=== PATIENT | female | born 1960 ===

== ENCOUNTER → 2016-06-26 | Outpatient (CLI) | payer BC ==
--- NOTE | 2016-06-26 10:00 | DIAGNOSTIC IMAGING REPORT ---
RIGHT SHOULDER MIN 2 VIEWS CLINICAL HISTORY: RIGHT SHOULDER PAIN Right pain COMPARISON: None. DISCUSSION: Minimal degenerative change glenohumeral joint. All remaining osseous structures are unremarkable. Alignment is anatomic. There is no evidence for soft tissue swelling. IMPRESSION: Minimal degenerative change articular surfaces of the glenohumeral joint. Electronically signed by: Bib Lee M.D. 06/26/2016 9:59 AM Dictated Date/Time: 06/26/2016 9:58 AM
== END | disposition home or self-care (01) ==
LOC: C.RDSM 08:17
PROVIDERS: ATTEND Family Medicine
DX: M25.511 Pain in right shoulder (principal)

== ENCOUNTER → 2016-07-17 | Outpatient (CLI) | payer BC | END | disposition home or self-care (01) | LOC: C.PAPS 10:38 | PROVIDERS: ATTEND Obstetrics & Gynecology | DX: Z01.419 Encounter for gynecological examination (general) (routine) without abnormal findings (principal); Z87.42 Personal history of other diseases of the female genital tract ==

== ENCOUNTER 2017-02-15 09:36 | Emergency (ER) | payer BC ==
[~2017-02-15] VITALS: Ht 162.6 cm; Wt 56.3 kg
[2017-02-15 09:41] VITALS: TEMP 36.8; Ht 162.6 cm; Wt 56.3 kg
[2017-02-15] MEDS ORDERED: LANS30CA12 PO (09:48)
[2017-02-15] MEDS ORDERED: ESTR0.3T PO (09:48)
[2017-02-15] MEDS ORDERED: MULTTAB58 PO (09:48)
--- NOTE | 2017-02-15 10:17 | EMERGENCY ROOM VISIT NOTE ---
ED Visit Note First contact with patient: 09:51 CHIEF COMPLAINT: Facial laceration HISTORY OF PRESENT ILLNESS: This 56-year-old female presents the ER with chief complaint of a laceration to her forehead. The patient states that she was cleaning today and hit her head on the edge of a windowsill. The patient denies any loss of consciousness, dizziness, visual changes. The patient's tetanus is up-to-date. REVIEW OF SYSTEMS: 10 system review was performed and was negative unless stated otherwise history of present illness. PMH: The patient is healthy; heartburn SOCIAL HISTORY: Patient lives . The patient denies tobacco use but admits to occasional alcohol use. PHYSICAL EXAM: Vital Signs: Were reviewed Reviewed Nurse's notes. GENERAL: 56 year white female appears in no acute distress. MENTAL Status: Alert and oriented 3. EYES: Pupils are round, equal, and react briskly to light. FACE: There is a 1 cm superficial cut on the right side of the forehead. The wound looks clean. The wound edges do not separate with traction. There is no active bleeding. Mild edema noted around the cut. EMERGENCY DEPARTMENT COURSE: The patient was evaluated. The wound was cleansed with saline and then dried. Dermabond was applied. DIAGNOSIS: 1 cm facial laceration DISCHARGE INSTRUCTIONS: Follow skin glue instructions. Any signs of infection, follow-up with your family doctor. Patient condition was: stable. Please see Emergency Department Medical Record for additional patient information; this may include discharge diagnosis, interpretation of EKG, laboratory, and/or radiologic studies, Emergency Department course, etc. Current/Historical Medications Scheduled Estrogens, Conjugated (Premarin), Unknown Dose PO DAILY Lansoprazole (Prevacid), 30 MG PO DAILY Multiple Vitamin (Multivitamin), 1 TAB PO DAILY Allergies Coded Allergies: Ciprofloxacin (Unverified Adverse Reaction, Intermediate, HIVES, 02/15/17) Vital Signs Date Time Temp Pulse Resp B/P (MAP) Pulse Ox O2 Delivery O2 Flow Rate FiO2 02/15/17 09:41 36.8 64 16 158/88 100 Room Air Departure Information Referrals Lauren Cosby M.D. (PCP) Patient Instructions [facility]
[2017-02-15 10:26] VITALS: BP 147/86; PULSE 67; O2SAT 100
== END 2017-02-15 10:27 | disposition home or self-care (01) ==
LOC: C.EDB 09:38
DX: S01.81XA Laceration without foreign body of other part of head, initial encounter (principal); W22.09XA Striking against other stationary object, initial encounter; Y93.89 Activity, other specified